=== PATIENT | female | born 1955 | race Caucasian/White ===

== ENCOUNTER 2017-10-10 13:52 | Inpatient (IN) | payer OTHER ==
[2017-10-10 14:22] LABS: CHLORIDE,CL 102 mEq/L (98-106); SODIUM,NA 141 mEq/L (136-145)
[2017-10-10] MEDS ORDERED: Docusate Sodium 100 MG Cap PO PRN (17:06)
[2017-10-10] MEDS ORDERED: Temazepam 15 MG Cap PO PRN (17:06)
[2017-10-10] MEDS: Ondansetron 4 MG/2 ML SDV IV PRN (17:35)
[2017-10-10] MEDS: Lactated Ringers 1,000 ML IV SCH ×2 (17:39→20:00)
[2017-10-10] MEDS: Enoxaparin 40 MG/0.4 ML Syringe SUBCUT SCH (17:40)
[2017-10-10] MEDS: cefTRIAXone 1 GM Vial IVPUSH SCH (17:40)
[2017-10-10] MEDS: Enalapril 5 MG Tab PO SCH (20:00)
[2017-10-10] MEDS: metFORMIN 500 MG Tab.ER PO SCH (20:00)
[2017-10-10] MEDS: Cyclobenzaprine 10 MG Tab PO SCH (20:00)
[2017-10-10] MEDS: Simvastatin 10 MG Tab PO SCH (20:00)
[2017-10-10] MEDS: Acetaminophen 325 MG Tab PO PRN (20:05)
[2017-10-11] MEDS: Pantoprazole 40 MG Tab.CR PO SCH (06:41)
[2017-10-11] MEDS: Acetaminophen 325 MG Tab PO PRN (06:41)
[2017-10-11 07:34] LABS: CHLORIDE,CL 104 mEq/L (98-106); SODIUM,NA 142 mEq/L (136-145)
[2017-10-11] MEDS ORDERED: Calcium Carbonate 500 MG Tab.Chew PO PRN (08:42)
[2017-10-11] MEDS: Aspirin 81 MG Tab.EC PO SCH (08:44)
[2017-10-11] MEDS: Enalapril 5 MG Tab PO SCH ×2 (08:44→19:54)
[2017-10-11] MEDS: metFORMIN 500 MG Tab.ER PO SCH ×2 (08:45→20:00)
--- NOTE | 2017-10-11 08:46 | PCM.PN ---
- General Info Date of Service: 10/11/17 Admission Dx/Problem (Free Text): UTI Dehydration Subjective Update: Joy was admitted yesterday for UTI, vomiting, and dehydration. She reports she is feeling better this morning. She reports her nausea has improved. She has not vomited since being admitted. Does continue to have a decreased appetite. Reports she has had epigastric discomfort since vomiting so much yesterday. Does have a history of GERD. Reports this feels similar. Denies any shortness of breath or dizziness. Functional Status: Reports: Pain Controlled, Tolerating Diet, Ambulating, Urinating, New Symptoms - Review of Systems General: Reports: Weakness, Fatigue. Denies: Fever, Chills Pulmonary: Reports: No Symptoms. Denies: Shortness of Breath, Pleuritic Chest Pain, Cough, Sputum, Hemoptysis, Wheezing Cardiovascular: Denies: Chest Pain, Palpitations, Dyspnea on Exertion, Edema, Lightheadedness Gastrointestinal: Reports: Abdominal Pain (epigastric), Decreased Appetite, Nausea. Denies: Diarrhea, Vomiting Genitourinary: Reports: No Symptoms Neurological: Reports: Weakness - Patient Data Vitals - Most Recent: Last Vital Signs Temp 97.2 F 10/11/17 07:46 Pulse 78 10/11/17 07:46 Resp 20 10/11/17 07:46 BP 148/76 H 10/11/17 07:46 Pulse Ox 98 10/11/17 07:46 Weight - Most Recent: 190 lb 6.4 oz I&O - Last 24 Hours: Intake & Output 10/10/17 10/11/17 10/11/17 22:59 06:59 14:59 Intake Total 294 Balance 294 Lab Results Last 24 Hours: Laboratory Results - last 24 hr 10/10/17 10/10/17 10/10/17 Range/Units 13:59 13:59 13:59 WBC 6.9 (5.0-10.0) 10^3/uL RBC 5.58 H (4.00-5.50) 10^6/uL Hgb 16.6 H (12.0-16.0) g/dL Hct 49.3 H (37.0-47.0) % MCV 88.4 (82.0-94.0) fL MCH 29.7 (27.0-32.0) pg MCHC 33.7 (33.0-38.0) g/dL RDW Coeff of Pb 13.5 (11.0-15.0) % Plt Count 288 (150-400) 10^3/uL Neut % (Auto) 60.8 (35-85) % Lymph % (Auto) 26.8 (10-55) % [place] % (Auto) 10.2 (0-16) % Eos % (Auto) 1.9 (0-5) % Baso % (Auto) 0.3 (0-3) % Neut # (Auto) 4.17 (1.80-7.00) 10^3/uL Lymph # (Auto) 1.84 (1.00-4.80) 10^3/uL [place] # (Auto) 0.70 (0.00-0.80) 10^3/uL Eos # (Auto) 0.13 (0.00-0.45) 10^3/uL Baso # (Auto) 0.02 10^3/uL Sodium 141 (136-145) mEq/L Potassium 3.7 (3.5-5.0) mEq/L Chloride 102 (98-106) mEq/L Carbon Dioxide 30 (21-32) mmol/L BUN 17 (7-18) mg/dL Creatinine 0.8 (0.6-1.0) mg/dL Est Cr Clr Drug Dosing TNP Estimated GFR (MDRD) > 60 (>=60) mL/min Glucose 115 H (75-99) mg/dL POC Glucose (75-105) mg/dl Calcium 9.8 (8.4-10.1) mg/dL Magnesium (1.8-2.4) mg/dL Total Bilirubin 0.5 (0.0-1.0) mg/dL AST 30 (15-37) U/L ALT 41 (12-78) U/L Alkaline Phosphatase 111 (46-116) U/L C-Reactive Protein 2.9 H (0.2-0.8) mg/dL Total Protein 7.5 (6.4-8.2) g/dL Albumin 3.6 (3.4-5.0) g/dL Amylase 39 (25-115) U/L Urine Color Yellow (YELLOW) Urine Appearance Slightly cloudy (CLEAR) Urine pH 5.5 (4.5-8.0) Ur Specific [place] 1.025 H (1.003-1.020) Urine Protein 30 H (NEGATIVE) mg/dL Urine Glucose (UA) Negative (NEGATIVE) mg/dL Urine Ketones 15 H (NEGATIVE) mg/dL Urine Occult Blood Trace-intact H (NEGATIVE) Urine Nitrite Negative (NEGATIVE) Urine Bilirubin Negative (NEGATIVE) Urine Urobilinogen 1.0 (0.2-1.0) EU/dL Ur Leukocyte Esterase Moderate H (NEGATIVE) Urine RBC Not seen (0-5) /HPF Urine WBC 20-30 H (0-5) /HPF Ur Squamous Epith Cells Moderate H (NOT SEEN) /HPF Amorphous Sediment Few H (NOT SEEN) /HPF Urine Bacteria Few H (NOT SEEN) /HPF 10/11/17 10/11/17 Range/Units 07:00 07:45 WBC (5.0-10.0) 10^3/uL RBC (4.00-5.50) 10^6/uL Hgb (12.0-16.0) g/dL Hct (37.0-47.0) % MCV (82.0-94.0) fL MCH (27.0-32.0) pg MCHC (33.0-38.0) g/dL RDW Coeff of Pb (11.0-15.0) % Plt Count (150-400) 10^3/uL Neut % (Auto) (35-85) % Lymph % (Auto) (10-55) % [place] % (Auto) (0-16) % Eos % (Auto) (0-5) % Baso % (Auto) (0-3) % Neut # (Auto) (1.80-7.00) 10^3/uL Lymph # (Auto) (1.00-4.80) 10^3/uL [place] # (Auto) (0.00-0.80) 10^3/uL Eos # (Auto) (0.00-0.45) 10^3/uL Baso # (Auto) 10^3/uL Sodium 142 (136-145) mEq/L Potassium 3.8 (3.5-5.0) mEq/L Chloride 104 (98-106) mEq/L Carbon Dioxide 31 (21-32) mmol/L BUN 13 (7-18) mg/dL Creatinine 0.8 (0.6-1.0) mg/dL Est Cr Clr Drug Dosing 55.02 Estimated GFR (MDRD) > 60 (>=60) mL/min Glucose 107 H (75-99) mg/dL POC Glucose 98 (75-105) mg/dl Calcium 9.0 (8.4-10.1) mg/dL Magnesium 1.6 L (1.8-2.4) mg/dL Total Bilirubin (0.0-1.0) mg/dL AST (15-37) U/L ALT (12-78) U/L Alkaline Phosphatase (46-116) U/L C-Reactive Protein (0.2-0.8) mg/dL Total Protein (6.4-8.2) g/dL Albumin (3.4-5.0) g/dL Amylase (25-115) U/L Urine Color (YELLOW) Urine Appearance (CLEAR) Urine pH (4.5-8.0) Ur Specific [place] (1.003-1.020) Urine Protein (NEGATIVE) mg/dL Urine Glucose (UA) (NEGATIVE) mg/dL Urine Ketones (NEGATIVE) mg/dL Urine Occult Blood (NEGATIVE) Urine Nitrite (NEGATIVE) Urine Bilirubin (NEGATIVE) Urine Urobilinogen (0.2-1.0) EU/dL Ur Leukocyte Esterase (NEGATIVE) Urine RBC (0-5) /HPF Urine WBC (0-5) /HPF Ur Squamous Epith Cells (NOT SEEN) /HPF Amorphous Sediment (NOT SEEN) /HPF Urine Bacteria (NOT SEEN) /HPF Med Orders - Current: Current Medications Acetaminophen (Tylenol) 650 mg PO Q4H PRN PRN Reason: Pain (Mild 1-3)/fever Last Admin: 10/11/17 06:41 Dose: 650 mg Aspirin (Halfprin) 81 mg PO DAILY [facility] Calcium Carbonate/Glycine (Tums) 500 mg PO QID PRN PRN Reason: Dyspepsia Ceftriaxone Sodium (Rocephin) 1 gm IVPUSH Q24H [facility] Last Admin: 10/10/17 17:40 Dose: 1 gm Cyclobenzaprine HCl (Flexeril) 10 mg PO BEDTIME [facility] Last Admin: 10/10/17 20:00 Dose: 10 mg Docusate Sodium (Colace) 100 mg PO BID PRN PRN Reason: Constipation Duloxetine HCl (Cymbalta) 60 mg PO BEDTIME [facility] Enalapril Maleate (Vasotec) 10 mg PO BID [facility] Last Admin: 10/10/17 20:00 Dose: 10 mg Enoxaparin Sodium (Lovenox) 40 mg SUBCUT Q24H [facility] Last Admin: 10/10/17 17:40 Dose: 40 mg Sodium Chloride (Sodium Chloride 0.45%) 1,000 mls @ 100 mls/hr IV ASDIRECTED [facility] Magnesium Oxide (Magnesium Oxide) 250 mg PO BID [facility] Metformin HCl (Glucophage Xr) 500 mg PO BID [facility] Last Admin: 10/10/17 20:00 Dose: 500 mg Ondansetron HCl (Zofran) 4 - 8 mg IV Q6H PRN PRN Reason: Nausea/Vomiting Last Admin: 10/10/17 17:35 Dose: 4 mg Pantoprazole Sodium (Protonix) 40 mg PO DAILY@0700 [facility] Last Admin: 10/11/17 06:41 Dose: 40 mg Simvastatin (Zocor) 10 mg PO BEDTIME [facility] Last Admin: 10/10/17 20:00 Dose: 10 mg Temazepam (Restoril) 15 mg PO BEDTIME PRN PRN Reason: Sleep Discontinued Medications Lactated Ringer's (Ringers, Lactated) 1,000 mls @ 125 mls/hr IV ASDIRECTED [facility] Last Admin: 10/10/17 20:00 Dose: 125 mls/hr Magnesium Oxide (Magnesium Oxide) 250 mg PO BEDTIME [facility] Last Admin: 10/10/17 20:00 Dose: 250 mg - Exam Quality Assessment: DVT Prophylaxis General: Alert, Oriented Neck: Supple Lungs: Clear to Auscultation, Normal Respiratory Effort Cardiovascular: Regular Rate, Regular Rhythm GI/Abdominal Exam: Normal Bowel Sounds, Soft, No Distention, Tender (epigastric area) Back Exam: Normal Inspection, Full Range of Motion. No: CVA Tenderness (L), CVA Tenderness (R) Extremities: Normal Inspection, Normal Range of Motion, Non-Tender, No Pedal Edema, Normal Capillary Refill Skin: Warm, Dry, Intact Neurological: No New Focal Deficit Psy/Mental Status: Alert, Normal Affect, Normal Mood - Problem List & Annotations (1) UTI (urinary tract infection) SNOMED Code(s): 03676141 Code(s): N39.0 - URINARY TRACT INFECTION, SITE NOT SPECIFIED Status: Acute Current Visit: Yes Qualifiers: Urinary tract infection type: site unspecified Hematuria presence: without hematuria Qualified Code(s): N39.0 - Urinary tract infection, site not specified (2) Dehydration SNOMED Code(s): 97479950 Code(s): E86.0 - DEHYDRATION Status: Acute Current Visit: Yes (3) Type II diabetes mellitus SNOMED Code(s): 92509795 Code(s): E11.9 - TYPE 2 DIABETES MELLITUS WITHOUT COMPLICATIONS Status: Chronic Current Visit: Yes Qualifiers: Diabetes mellitus complication status: without complication Diabetes mellitus fdc insulin use: without fdc use Qualified Code(s): E11.9 - Type 2 diabetes mellitus without complications (4) Vomiting SNOMED Code(s): 087084206 Code(s): R11.10 - VOMITING, UNSPECIFIED Status: Acute Current Visit: No Qualifiers: Vomiting type: unspecified Vomiting Intractability: non-intractable Nausea presence: with nausea Qualified Code(s): R11.2 - Nausea with vomiting, unspecified - Problem List Review Problem List Initiated/Reviewed/Updated: Yes - My Orders Last 24 Hours: My Active Orders 10/11/17 08:24 Magnesium Oxide 250 mg PO BID 10/11/17 08:30 Sodium Chloride 0.45% 1,000 ml IV ASDIRECTED 10/11/17 08:42 Calcium Carbonate [Tums] 500 mg PO QID PRN - Assessment Assessment:: UTI Dehydration - Plan Plan:: Continue IVF. Switch to 1/2 NS at 100 mL/hr Continue current antibiotic. Awaiting urine culture and sensitivity Protonix daily. Will add Tums QID PRN Will keep at least one more day for continued IVF and antibiotic therapy until culture and sensitivity are back. Anticipate discharge tomorrow.
[2017-10-11] MEDS: Sodium Chloride 0.45% 1,000 ML IV SCH ×2 (09:43→19:43)
[2017-10-11] MEDS: Ondansetron 4 MG/2 ML SDV IV PRN (16:10)
[2017-10-11] MEDS: Enoxaparin 40 MG/0.4 ML Syringe SUBCUT SCH (17:40)
[2017-10-11] MEDS: cefTRIAXone 1 GM Vial IVPUSH SCH (17:40)
[2017-10-11] MEDS ORDERED: Pantoprazole 40 MG Vial IVPUSH STA (18:33)
[2017-10-11] MEDS ORDERED: Alum Hydrox/Mag Hydrox/Simeth 30 ML, Lidocaine 2% 15 ML PO ONE ×2 (18:34)
[2017-10-11] MEDS: Cyclobenzaprine 10 MG Tab PO SCH (19:47)
[2017-10-11] MEDS: Simvastatin 10 MG Tab PO SCH (19:55)
[2017-10-11] MEDS ORDERED: DULoxetine 30 MG Cap PO SCH (20:00)
[2017-10-12] MEDS: Sodium Chloride 0.45% 1,000 ML IV SCH (05:46)
[2017-10-12] MEDS: Pantoprazole 40 MG Tab.CR PO SCH (06:30)
[2017-10-12 07:20] LABS: CHLORIDE,CL 104 mEq/L (98-106); SODIUM,NA 141 mEq/L (136-145)
[2017-10-12 07:29] VITALS: BP 154/82
[2017-10-12] MEDS ORDERED: metFORMIN 500 MG Tab.ER PO SCH (08:00)
[2017-10-12] MEDS: Enalapril 5 MG Tab PO SCH (08:19)
[2017-10-12] MEDS: Aspirin 81 MG Tab.EC PO SCH (08:19)
--- NOTE | 2017-10-12 08:49 | DISCH ---
HOSPITAL COURSE: Joy Navarrete came in with dehydration secondary to nausea, vomiting, secondary to UTI, admitted to the hospital, started on IV fluids and intravenous antibiotics, responded nicely. At the time of discharge, abdomen was soft. No further nausea, vomiting, or diarrhea. Lab here in the hospital, UA was positive. Magnesium a little bit low, so we will increase her magnesium at home. CBC looked good. C-reactive protein went from 2.9 to 0.6. DISPOSITION: The patient was discharged home, see her back on a p.r.n. basis. DISCHARGE MEDICATIONS: Home medications plus Ceftin 250 p.o. b.i.d. for 7 days. DISCHARGE DIAGNOSIS: 1. URINARY TRACT INFECTION. 2. DIABETES MELLITUS. 3. HYPERLIPIDEMIA. 4. HYPERTENSION. SAMI /[id number]
== END 2017-10-12 13:25 | disposition home or self-care (01) | DRG 690 ==
LOC: CC.LAB 13:52 → CC.MS 14:56 → UNDOADMIN 14:56 → CC.MS 17:06
PROVIDERS: ADMIT General Practice; ATTEND General Practice
DX: N39.0 Urinary tract infection, site not specified (principal); E86.0 Dehydration; E11.9 Type 2 diabetes mellitus without complications; M19.90 Unspecified osteoarthritis, unspecified site; I10 Essential (primary) hypertension; E78.5 Hyperlipidemia, unspecified; Z88.8 Allergy status to other drugs, medicaments and biological substances; Z79.84 Long term (current) use of oral hypoglycemic drugs; Z79.82 Long term (current) use of aspirin; Z79.899 Other long term (current) drug therapy
CPT/HCPCS: 36415; 80048; 80053; 81001; 82150; 82962; 83735; 85025; 86140; 87086; 87088; 87186; A9270-GY; C9113; J0696; J1650; J2405; J7030; J7120

== ENCOUNTER → 2017-11-02 | Day surgery (SDC) | payer OTHER ==
[~2017-11-02] MED LIST: Lactated Ringers 1,000 ML IV SCH; Propofol 200 MG/20 ML SDV IV ONE
[2017-11-02 08:22] VITALS: BP 150/78
--- NOTE | 2017-11-02 13:50 | OR ---
DATE OF OPERATION: 11/02/2017 PREOPERATIVE DIAGNOSIS: GASTROESOPHAGEAL REFLUX DISEASE. POSTOPERATIVE DIAGNOSIS: GASTROESOPHAGEAL REFLUX DISEASE. SURGEON: Kory Fraga MD PROCEDURE: EGD WITH BIOPSIES X2, POLYP REMOVAL X1, ALDAIR. ANESTHESIA: JAVA LEAD ARCHITECT. COMPLICATIONS: None. SPECIMEN: 1. Antral biopsy x2. 2. ALDAIR. 3. Fundal polyp. FINDINGS: 1. Full-length EGD. 2. Moderately active antral gastritis without erosion or ulceration. 3. A benign fundal polyp. 4. Spontaneous GERD without hernia or esophagitis. RECOMMENDATIONS: Medical followup with Dr. Causey. INDICATIONS: Patient was sent for some ongoing issues with substernal burning. Dr. Causey sent the patient for EGD. DESCRIPTION OF PROCEDURE: The patient was prepped and draped, placed in left lateral decubitus position. A lubricated Olympus gastroscope was inserted and easily advanced to cricopharyngeus and intubated in the esophagus. Esophageal lining was benign in its entire course. Z-line was crisp and sharp around 38 cm. There was no hiatal hernia. No distal esophagitis, stricturing, ulceration, or Montoya's changes. There was some spontaneous reflux, but no other gross abnormalities found. The scope was advanced in the stomach through the pylorus into the second portion of duodenum. This and the duodenal bulb were benign. The scope was brought back into the stomach and retroflexed. The upper fundus and cardia were unremarkable. In the mid body of the fundus, there was a small gastric polyp removed with a forceps in its entirety. No other fundal abnormalities were visualized. The patient does have apparently prominent and active gastritis of the antrum without any focal ulcerations or erosions. Biopsies x2 were taken along with a ALDAIR test. Air was then suctioned. Scope removed without complication. CHELSY/MERISSA /[id number]
== END ==
LOC: CC.SDS 06:26
PROVIDERS: ATTEND Family Medicine
DX: K31.7 Polyp of stomach and duodenum (principal); K31.89 Other diseases of stomach and duodenum; E11.9 Type 2 diabetes mellitus without complications; K21.9 Gastro-esophageal reflux disease without esophagitis; I10 Essential (primary) hypertension; E78.5 Hyperlipidemia, unspecified; G47.33 Obstructive sleep apnea (adult) (pediatric); E55.9 Vitamin D deficiency, unspecified; Z88.8 Allergy status to other drugs, medicaments and biological substances; Z79.890 Hormone replacement therapy; Z79.82 Long term (current) use of aspirin; Z79.84 Long term (current) use of oral hypoglycemic drugs; Z79.899 Other long term (current) drug therapy; Z72.0 Tobacco use; Z90.49 Acquired absence of other specified parts of digestive tract
CPT/HCPCS: 43239; 82962; 87081; J7120; J2704

== ENCOUNTER 2019-03-07 13:53 | Observation (INO) | payer OTHER ==
[2019-03-07 14:27] LABS: CHLORIDE,CL 104 mEq/L (98-106); SODIUM,NA 140 mEq/L (136-145)
[2019-03-07] MEDS ORDERED: Ondansetron 4 MG Tab.DIS PO PRN (15:04)
[2019-03-07] MEDS ORDERED: Ondansetron 4 MG/2 ML SDV IV PRN (15:04)
[2019-03-07] MEDS ORDERED: Sodium Chloride 0.9% 10 ML Syringe FLUSH PRN (15:04)
[2019-03-07] MEDS: Pantoprazole 40 MG Vial IVPUSH SCH ×2 (15:30→19:30)
[2019-03-07] MEDS: Sodium Chloride 0.9% 1,000 ML IV SCH (15:34)
[2019-03-07] MEDS ORDERED: Ondansetron 8 MG in Sodium Chloride 0.9% 50 ML IV PRN (15:40)
[2019-03-07] MEDS ORDERED: Enoxaparin 30 MG/0.3 ML Syringe SUBCUT SCH (16:00)
[2019-03-07] MEDS: Acetaminophen 325 MG Tab PO PRN (16:54)
[2019-03-07] MEDS ORDERED: Alum Hydrox/Mag Hydrox/Simeth 30 ML, Lidocaine 2% 15 ML PO ONE ×2 (18:19)
[2019-03-07] MEDS ORDERED: SUCRALFATE 1 GM PO SCH (20:00)
[2019-03-07] MEDS ORDERED: CYCLOBENZAPRINE 10 MG PO SCH (20:00)
[2019-03-07] MEDS ORDERED: SIMVASTATIN 20 MG PO SCH (20:00)
[2019-03-07] MEDS ORDERED: DULOXETINE HCL 60 MG PO SCH (20:00)
[2019-03-07] MEDS ORDERED: Simvastatin 10 MG Tab PO SCH (20:00)
[2019-03-08] MEDS: Sodium Chloride 0.9% 1,000 ML IV SCH ×2 (00:20→06:21)
[2019-03-08 07:33] VITALS: BP 148/77; PULSE 90
[2019-03-08] MEDS: Pantoprazole 40 MG Vial IVPUSH SCH (07:35)
[2019-03-08] MEDS: Sucralfate 1 GM Tab PO SCH ×2 (07:36→11:43)
[2019-03-08] MEDS: Acetaminophen 325 MG Tab PO PRN (07:45)
[2019-03-08] MEDS ORDERED: Aspirin 81 MG Tab.EC PO SCH (08:00)
[2019-03-08] MEDS ORDERED: ENALAPRIL MALEATE 10 MG PO SCH (08:00)
--- NOTE | 2019-03-08 13:35 | PCM.PN ---
- General Info Date of Service: 03/08/19 Admission Dx/Problem (Free Text): Gastroenteritis Functional Status: Reports: Pain Controlled - Review of Systems General: Reports: No Symptoms. Denies: Fever, Weakness (HEENT: Her daughter in [place] and a) HEENT: Reports: No Symptoms Pulmonary: Reports: No Symptoms Cardiovascular: Reports: No Symptoms Gastrointestinal: Reports: No Symptoms. Denies: Abdominal Pain, Diarrhea, Nausea, Vomiting Genitourinary: Reports: No Symptoms Musculoskeletal: Reports: No Symptoms Skin: Reports: No Symptoms Neurological: Reports: No Symptoms Psychiatric: Reports: No Symptoms - Patient Data Vitals - Most Recent: Last Vital Signs Temp 37.1 C 03/08/19 07:32 Pulse 90 03/08/19 07:32 Resp 18 03/08/19 07:32 BP 148/77 H 03/08/19 07:32 Pulse Ox 98 03/08/19 07:32 Weight - Most Recent: 91.263 kg I&O - Last 24 Hours: Intake & Output 03/07/19 03/08/19 03/08/19 22:59 06:59 14:59 Intake Total 2152 600 Output Total 200 350 Balance -200 2152 250 Lab Results Last 24 Hours: Laboratory Results - last 24 hr 03/07/19 03/07/19 03/07/19 Range/Units 14:00 14:00 14:00 WBC 10.2 H (5.0-10.0) 10^3/uL RBC 5.57 H (4.00-5.50) 10^6/uL Hgb 16.8 H (12.0-16.0) g/dL Hct 48.7 H (37.0-47.0) % MCV 87.4 (82.0-94.0) fL MCH 30.2 (27.0-32.0) pg MCHC 34.5 (33.0-38.0) g/dL RDW Coeff of Pb 12.9 (11.0-15.0) % Plt Count 357 (150-400) 10^3/uL Neut % (Auto) 69.8 (35-85) % Lymph % (Auto) 23.6 (10-55) % [place] % (Auto) 6.1 (0-16) % Eos % (Auto) 0.2 (0-5) % Baso % (Auto) 0.3 (0-3) % Neut # (Auto) 7.11 H (1.80-7.00) 10^3/uL Lymph # (Auto) 2.40 (1.00-4.80) 10^3/uL [place] # (Auto) 0.62 (0.00-0.80) 10^3/uL Eos # (Auto) 0.02 (0.00-0.45) 10^3/uL Baso # (Auto) 0.03 10^3/uL Sodium 140 (136-145) mEq/L Potassium 3.9 (3.5-5.0) mEq/L Chloride 104 (98-106) mEq/L Carbon Dioxide 24 (21-32) mmol/L BUN 13 (7-18) mg/dL Creatinine 0.8 (0.6-1.0) mg/dL Est Cr Clr Drug Dosing TNP Estimated GFR (MDRD) > 60 (>=60) mL/min Glucose 135 H D (75-99) mg/dL POC Glucose (75-105) mg/dl Lactic Acid (0.4-2.0) mmol/L Calcium 9.7 (8.4-10.1) mg/dL Total Bilirubin 0.6 (0.0-1.0) mg/dL AST 29 (15-37) U/L ALT 45 (12-78) U/L Alkaline Phosphatase 80 (46-116) U/L C-Reactive Protein 0.4 (0.2-0.8) mg/dL Total Protein 7.9 (6.4-8.2) g/dL Albumin 4.0 (3.4-5.0) g/dL Amylase 44 (25-115) U/L Urine Color Dark yellow (YELLOW) Urine Appearance Clear (CLEAR) Urine pH 7.0 (4.5-8.0) Ur Specific [place] 1.020 (1.003-1.020) Urine Protein 100 H (NEGATIVE) mg/dL Urine Glucose (UA) Negative (NEGATIVE) mg/dL Urine Ketones 15 H (NEGATIVE) mg/dL Urine Occult Blood Negative (NEGATIVE) Urine Nitrite Negative (NEGATIVE) Urine Bilirubin Negative (NEGATIVE) Urine Urobilinogen 0.2 (0.2-1.0) EU/dL Ur Leukocyte Esterase Small H (NEGATIVE) Urine RBC 0-5 (0-5) /HPF Urine WBC 0-5 (0-5) /HPF Ur Squamous Epith Cells Many H (NOT SEEN) /HPF Urine Bacteria Few H (NOT SEEN) /HPF 03/07/19 03/08/19 Range/Units 14:00 07:50 WBC (5.0-10.0) 10^3/uL RBC (4.00-5.50) 10^6/uL Hgb (12.0-16.0) g/dL Hct (37.0-47.0) % MCV (82.0-94.0) fL MCH (27.0-32.0) pg MCHC (33.0-38.0) g/dL RDW Coeff of Pb (11.0-15.0) % Plt Count (150-400) 10^3/uL Neut % (Auto) (35-85) % Lymph % (Auto) (10-55) % [place] % (Auto) (0-16) % Eos % (Auto) (0-5) % Baso % (Auto) (0-3) % Neut # (Auto) (1.80-7.00) 10^3/uL Lymph # (Auto) (1.00-4.80) 10^3/uL [place] # (Auto) (0.00-0.80) 10^3/uL Eos # (Auto) (0.00-0.45) 10^3/uL Baso # (Auto) 10^3/uL Sodium (136-145) mEq/L Potassium (3.5-5.0) mEq/L Chloride (98-106) mEq/L Carbon Dioxide (21-32) mmol/L BUN (7-18) mg/dL Creatinine (0.6-1.0) mg/dL Est Cr Clr Drug Dosing Estimated GFR (MDRD) (>=60) mL/min Glucose (75-99) mg/dL POC Glucose 106 H (75-105) mg/dl Lactic Acid 1.0 (0.4-2.0) mmol/L Calcium (8.4-10.1) mg/dL Total Bilirubin (0.0-1.0) mg/dL AST (15-37) U/L ALT (12-78) U/L Alkaline Phosphatase (46-116) U/L C-Reactive Protein (0.2-0.8) mg/dL Total Protein (6.4-8.2) g/dL Albumin (3.4-5.0) g/dL Amylase (25-115) U/L Urine Color (YELLOW) Urine Appearance (CLEAR) Urine pH (4.5-8.0) Ur Specific [place] (1.003-1.020) Urine Protein (NEGATIVE) mg/dL Urine Glucose (UA) (NEGATIVE) mg/dL Urine Ketones (NEGATIVE) mg/dL Urine Occult Blood (NEGATIVE) Urine Nitrite (NEGATIVE) Urine Bilirubin (NEGATIVE) Urine Urobilinogen (0.2-1.0) EU/dL Ur Leukocyte Esterase (NEGATIVE) Urine RBC (0-5) /HPF Urine WBC (0-5) /HPF Ur Squamous Epith Cells (NOT SEEN) /HPF Urine Bacteria (NOT SEEN) /HPF Med Orders - Current: Current Medications Acetaminophen (Tylenol) 650 mg PO Q4H PRN PRN Reason: Pain (Mild 1-3)/fever Last Admin: 03/08/19 07:45 Dose: 650 mg Aspirin (Halfprin) 81 mg PO DAILY [facility] Last Admin: 03/08/19 07:37 Dose: 81 mg Cyclobenzaprine HCl (Flexeril) 10 mg PO BEDTIME [facility] Last Admin: 03/07/19 19:24 Dose: 10 mg Enoxaparin Sodium (Lovenox) 30 mg SUBCUT Q24H [facility] Last Admin: 03/07/19 15:34 Dose: 30 mg Sodium Chloride (Normal Saline) 1,000 mls @ 125 mls/hr IV ASDIRECTED [facility] Last Admin: 03/08/19 06:21 Dose: 125 mls/hr Ondansetron HCl 8 mg/ Sodium (Chloride) 54 mls @ 216 mls/hr IV Q4H PRN PRN Reason: Nausea Last Admin: 03/07/19 15:45 Dose: 216 mls/hr Magnesium Oxide (Magnesium Oxide) 500 mg PO BEDTIME [facility] Last Admin: 03/07/19 19:29 Dose: 500 mg Metformin HCl (Glucophage Xr) 500 mg PO BID [facility] Last Admin: 03/08/19 07:37 Dose: 500 mg Ptom Duloxetine Hcl [Cymbalta] 60 Mg ) 60 mg PO BEDTIME [facility] Last Admin: 03/07/19 19:26 Dose: 60 mg Ptom Enalapril Maleate [Vasotec] 10 Mg 10 mg PO DAILY [facility] Last Admin: 03/08/19 07:36 Dose: 10 mg Ptom Simvastatin (20 Mg Tab) 20 mg PO BEDTIME [facility] Last Admin: 03/07/19 19:25 Dose: 20 mg Ondansetron HCl (Zofran Odt) 8 mg PO Q4H PRN PRN Reason: nausea, able to take PO Last Admin: 03/08/19 07:35 Dose: 8 mg Pantoprazole Sodium (Protonix Iv) 40 mg IVPUSH BID [facility] Last Admin: 03/08/19 07:35 Dose: 40 mg Sodium Chloride (Saline Flush) 10 ml FLUSH ASDIRECTED PRN PRN Reason: Keep Vein Open Sucralfate (Carafate) 1 gm PO TIDAC [facility] Last Admin: 03/08/19 11:43 Dose: 1 gm Discontinued Medications Al Hydroxide/Mg Hydroxide 30 (ml/ Lidocaine HCl 15 ml) 0 ml PO ONETIME ONE Stop: 03/07/19 18:20 Last Admin: 03/07/19 18:26 Dose: 45 ml Ondansetron HCl (Zofran) 8 mg IV Q4H PRN PRN Reason: Nausea/Vomiting Simvastatin (Zocor) 20 mg PO BEDTIME [facility] Sucralfate (Carafate) 1 gm PO BID LILLIE - Exam General: Alert, Oriented, Cooperative, No Acute Distress Neck: Supple, Trachea Midline Lungs: Clear to Auscultation, Normal Respiratory Effort Cardiovascular: Regular Rate, Regular Rhythm, No Murmurs GI/Abdominal Exam: Normal Bowel Sounds, Soft, Non-Tender, No Distention Back Exam: Normal Inspection, Full Range of Motion Extremities: Normal Inspection, Normal Range of Motion, Non-Tender, No Pedal Edema, Normal Capillary Refill Peripheral Pulses: 2+: Radial (L) Skin: Warm, Dry, Intact Neurological: No New Focal Deficit Psy/Mental Status: Alert, Normal Affect, Normal Mood - Problem List Review Problem List Initiated/Reviewed/Updated: Yes - Plan Plan:: The patient was evaluated in the hospital, the patient is feeling much better the patient tolerated a bland diet this afternoon, the patient requests to go home I agree that she is able to go home at this point. Again she is tolerating liquids she is tolerating soft bland solid foods. The patient will be discharged with Zofran 4 mg every 6 hours as needed for any nausea vomiting the patient is to follow-up in the clinic this coming week she is to call Sunday for an apartment time she is to return to the clinic or the emergency department sooner if worse or new problems she is advised to avoid any spicy or greasy foods she's not have any milk and milk products until well and no acidic- type drinks such as like orange juice.
[2019-03-08] MEDS ORDERED: Take Home: Pantoprazole 40 MG Tab.CR, 1 Tab Pack ONE (14:19)
[2019-03-08] MEDS ORDERED: Take Home: Ondansetron 4 MG Tab.DIS, 2 Tab Pack ONE (14:20)
[2019-03-08] MEDS ORDERED: Take Home: Pantoprazole 40 MG Tab.CR, 1 Tab Pack PO ONE (14:28)
[2019-03-08] MEDS ORDERED: Take Home: Ondansetron 4 MG Tab.DIS, 2 Tab Pack PO ONE (14:28)
[2019-03-08] MEDS ORDERED: Pantoprazole 40 MG Tab.CR PO ONE (14:35)
[2019-03-08] MEDS ORDERED: Ondansetron 4 MG Tab.DIS PO ONE (14:35)
== END 2019-03-08 14:36 | disposition home or self-care (01) ==
LOC: CC.FCMC 13:53 → CC.MS 13:53 → UNDOADMOB 14:39 → CC.MS 15:04
PROVIDERS: ADMIT Physician Assistant Medical; ATTEND Family Medicine
DX: K52.9 Noninfective gastroenteritis and colitis, unspecified (principal); E86.0 Dehydration; Z88.8 Allergy status to other drugs, medicaments and biological substances; Z79.82 Long term (current) use of aspirin; Z79.84 Long term (current) use of oral hypoglycemic drugs
CPT/HCPCS: 36415; 74019; 80053; 81001; 82150; 82962; 83605; 85025; 86140; 96361; 96365; 96372; 96375; 96376; A9270; C9113; G0378; J1650; J2405; J7030; J7050; 99217; 99220

== ENCOUNTER → 2019-03-28 | Day surgery (SDC) | payer OTHER ==
[~2019-03-28] MED LIST changes: -Lactated Ringers 1,000 ML IV SCH
[2019-03-28] MEDS: Lactated Ringers 1,000 ML IV SCH (07:59)
[2019-03-28 09:40] VITALS: BP 149/92
--- NOTE | 2019-03-28 09:54 | OR ---
DATE OF OPERATION: 03/28/2019 PREOPERATIVE DIAGNOSIS: VOMITING WITH EPIGASTRIC PAIN. POSTOPERATIVE DIAGNOSIS: VOMITING WITH EPIGASTRIC PAIN. SURGEON: Kory Fraga MD PROCEDURE: ESOPHAGOGASTRODUODENOSCOPY WITH BIOPSIES X3, ALDAIR. ANESTHESIA: MAC. COMPLICATIONS: None. SPECIMEN: 1. Antral biopsy x2. 2. ALDAIR. 3. Fundal biopsy x1. FINDINGS: 1. Full-length EGD. 2. Mild active gastritis, diffuse. RECOMMENDATIONS: Appropriate medical care. INDICATIONS: The patient has been having some ongoing issues with vomiting and epigastric pain. She was sent for diagnostic EGD. DESCRIPTION OF PROCEDURE: The patient was prepped and draped and placed in the left lateral decubitus position. A lubricated Olympus gastroscope was inserted over a bit, advanced to the cricopharyngeus area, and easily intubated into the esophagus. The esophageal lining was benign in its entire course. The Z-line was crisp around 38 cm. No hernia. No distal esophagitis, stricturing, ulceration, or Montoya's changes. The scope was advanced into the stomach through the pylorus and into the second portion of duodenum. This and the duodenal bulb appeared benign. The scope was brought back in the stomach and retroflexed. For the most part, the upper fundus and cardia were unremarkable. In the mid fundus, there was 1 small little inflammatory area, almost appeared like just short sigmoid gastritis. We did biopsy of that. The antrum had diffuse, but mild active gastritis. We did 2 biopsies of the most affected areas along with a CLOtest. No gross peptic ulcer, lesions, polyps, masses, or otherwise. Air was then suctioned from the stomach and the scope removed without complication. CHELSY/MERISSA /[id number]
== END ==
LOC: CC.SDS 07:39
PROVIDERS: ATTEND Family Medicine
DX: K29.50 Unspecified chronic gastritis without bleeding (principal); K31.89 Other diseases of stomach and duodenum; K21.9 Gastro-esophageal reflux disease without esophagitis; I10 Essential (primary) hypertension; E11.9 Type 2 diabetes mellitus without complications; E78.5 Hyperlipidemia, unspecified; E66.9 Obesity, unspecified; G47.33 Obstructive sleep apnea (adult) (pediatric); Z88.8 Allergy status to other drugs, medicaments and biological substances; Z68.36 Body mass index [BMI] 36.0-36.9, adult; Z99.89 Dependence on other enabling machines and devices; Z80.2 Family history of malignant neoplasm of other respiratory and intrathoracic organs; Z79.82 Long term (current) use of aspirin; Z79.84 Long term (current) use of oral hypoglycemic drugs; Z79.899 Other long term (current) drug therapy
CPT/HCPCS: 87081; J2704; J7120

== ENCOUNTER → 2019-10-03 | Day surgery (SDC) | payer OTHER ==
[~2019-10-03] MED LIST changes: +Lactated Ringers 1,000 ML IV SCH
[2019-10-03 08:38] VITALS: BP 156/86; PULSE 92
--- NOTE | 2019-10-03 14:12 | OR ---
DATE OF OPERATION: 10/03/2019 PREOPERATIVE DIAGNOSIS: SCREENING COLONOSCOPY. POSTOPERATIVE DIAGNOSIS: SCREENING COLONOSCOPY. SURGEON: Kory Fraga MD PROCEDURE: FULL-LENGTH COLONOSCOPY WITH COLD FORCEPS POLYP REMOVAL X1. ANESTHESIA: MAC. COMPLICATIONS: None. SPECIMEN: Small sessile polyp, hepatic flexure. FINDINGS: 1. Full-length colonoscopy. 2. 3 mm sessile polyp, hepatic flexure. RECOMMENDATIONS: Followup colonoscopy in 5 years. INDICATIONS: The patient was due for a routine screening colonoscopy as it had been 10 years since her last scope. She does have a history of polyps in the distant past. DESCRIPTION OF PROCEDURE: The patient was prepped and draped, placed in the left lateral decubitus position. A lubricated Olympus colonoscope was inserted and easily advanced to the cecum. Direct visualization of the ileocecal valve and appendiceal orifice was accomplished. The bowel prep was adequate. What stool was present was able to be suctioned. Upon withdrawal, the cecum and ascending colon were benign. Just past the hepatic flexure in the transverse colon side, the patient had a small flat sessile polyp approximately 3 mm in size. It was removed in its entirety with cold forceps. The rest of the transverse and descending colons were benign. Throughout the sigmoid and rectosigmoid area, there were no signs of any other polyps, masses, ulceration, or bleeding sites. No vascular abnormalities or signs of diverticula. The rectal vault was benign. Retroflexion showed no obvious perianal lesions. Air was then suctioned, scope removed without complication. CHELSY/MERISSA /[id number]
== END ==
LOC: CC.SDS 06:42
PROVIDERS: ATTEND Family Medicine
DX: Z12.11 Encounter for screening for malignant neoplasm of colon (principal); D12.3 Benign neoplasm of transverse colon; K21.9 Gastro-esophageal reflux disease without esophagitis; E11.9 Type 2 diabetes mellitus without complications; I10 Essential (primary) hypertension; E78.5 Hyperlipidemia, unspecified; G47.33 Obstructive sleep apnea (adult) (pediatric); M85.80 Other specified disorders of bone density and structure, unspecified site; E66.9 Obesity, unspecified; Z99.89 Dependence on other enabling machines and devices; Z88.8 Allergy status to other drugs, medicaments and biological substances; Z79.2 Long term (current) use of antibiotics; Z79.84 Long term (current) use of oral hypoglycemic drugs; Z68.39 Body mass index [BMI] 39.0-39.9, adult; Z79.899 Other long term (current) drug therapy
CPT/HCPCS: 45380; J2704; J7120

== ENCOUNTER → 2020-06-10 | Day surgery (SDC) | payer MEDICARE, OTHER ==
[~2020-06-10] MED LIST changes: -Lactated Ringers 1,000 ML IV SCH; +Lidocaine 1% with EPINEPHrine 1:100,000 20 ML MDV ONE; -Propofol 200 MG/20 ML SDV IV ONE
--- NOTE | 2020-06-10 10:47 | OR ---
DATE OF OPERATION: 06/10/2020 PREOPERATIVE DIAGNOSIS: SKIN LESION. POSTOPERATIVE DIAGNOSIS: SKIN LESION. SURGEON: Pj Moctezuma MD PROCEDURE: WIDE LOCAL EXCISION OF A 5 MM SKIN LESION ON THE CHIN. ANESTHESIA: Local. SPECIMEN: Skin lesion. INDICATIONS: This 65-year-old female has a nonhealing ulcerated area on the chin. It measures 5 mm in diameter. DESCRIPTION OF PROCEDURE: After adequate preparation, 1% Xylocaine with epinephrine was used to infiltrate an area around this lesion. An elliptical incision was made, which was 1 cm x 1 cm x 0.5 cm in dimensions. This incorporated the 5 mm lesion. However, if this turns out to really be a skin cancer, this would probably not be an adequate margin. In any event, this was excised full thickness. Bleeding was controlled with pressure, and a 5-0 nylon suture interrupted was used to close the skin lesion. A Steri-Strip was applied. BPNguyen/MERISSA /[id number]
[2020-06-10 11:07] VITALS: BP 160/81; PULSE 66
== END ==
LOC: CC.SDS 08:17
PROVIDERS: ATTEND Surgery
DX: D23.39 Other benign neoplasm of skin of other parts of face (principal); K21.9 Gastro-esophageal reflux disease without esophagitis; E11.9 Type 2 diabetes mellitus without complications; E78.5 Hyperlipidemia, unspecified; I10 Essential (primary) hypertension; G47.33 Obstructive sleep apnea (adult) (pediatric); Z88.8 Allergy status to other drugs, medicaments and biological substances; Z79.84 Long term (current) use of oral hypoglycemic drugs; Z79.899 Other long term (current) drug therapy; Z98.890 Other specified postprocedural states
CPT/HCPCS: 82962; 88305